=== PATIENT | female | born 1975 | race Caucasian/White ===

== ENCOUNTER 2018-03-04 08:17 | Emergency (ER) | payer SELFPAY ==
[2018-03-04 08:41] LABS: CHLORIDE,CL 105 mEq/L (98-106); SODIUM,NA 139 mEq/L (136-145)
[2018-03-04] MEDS: Sodium Chloride 0.9% 1,000 ML IV ONE (09:25)
--- NOTE | 2018-03-04 09:45 | EDM.PDOC ---
ED HPI GENERAL MEDICAL PROBLEM - General Chief Complaint: [employer] Problem Stated Complaint: vaginal bleeding Time Seen by Provider: 03/04/18 08:30 Source of Information: Reports: Patient History Limitations: Reports: No Limitations - History of Present Illness Onset Date: 02/18/18 Duration: Constant Location: Reports: Pelvis Severity: Moderate Improves with: Reports: None Worsens with: Reports: None Associated Symptoms: Reports: Other - Related Data Allergies Allergy/AdvReac Type Severity Reaction Status Date / Time No Known Allergies Allergy Verified 03/04/18 08:39 Home Meds: Home Meds Naproxen Sodium [Aleve] 440 mg PO Q6HR PRN 03/04/18 [History] Past Medical History HEENT History: Reports: None Genitourinary History: Reports: Renal Calculus Musculoskeletal History: Reports: None Psychiatric History: Reports: Anxiety, Depression Hematologic History: Reports: None Immunologic History: Reports: None Oncologic (Cancer) History: Reports: None Dermatologic History: Reports: None - Past Surgical History Head Surgeries/Procedures: Reports: None GI Surgical History: Reports: Cholecystectomy Oncologic Surgical History: Reports: None Social & Family History - Tobacco Use Smoking Status *Q: Never Smoker ED ROS GENERAL - Review of Systems Review Of Systems: See Below Constitutional: Reports: Chills. Denies: Fever, Malaise Respiratory: Denies: Shortness of Breath, Cough Cardiovascular: Denies: Chest Pain Endocrine: Reports: Fatigue GI/Abdominal: Reports: Nausea. Denies: Abdominal Pain, Bloody Stool, Vomiting : Reports: Other (vaginal bleeding. approx 4 pads per day. reports menses are regular and occur on approx the 4th of each month. this month she was several days late and has been bleeding for approx 10 days which is not normal for her.) . Denies: Dysuria, Flank Pain Musculoskeletal: Reports: No Symptoms Skin: Reports: No Symptoms ED EXAM, RENAL/ - Physical Exam Exam: See Below Exam Limited By: No Limitations General Appearance: Alert, WD/WN, No Apparent Distress Respiratory/Chest: No Respiratory Distress, Lungs Clear, Normal Breath Sounds, No Accessory Muscle Use, Chest Non-Tender Cardiovascular: Normal Peripheral Pulses, Regular Rate, Rhythm, No Edema GI/Abdominal: Normal Bowel Sounds, Soft, Non-Tender, No Organomegaly, No Distention, No Abnormal Bruit, No Mass (Female) Exam: Other (deferred) Back Exam: No: CVA Tenderness (L), CVA Tenderness (R) Extremities: Normal Inspection Neurological: Alert, Oriented, CN II-XII Intact Psychiatric: Normal Affect Skin Exam: Warm, Dry, Intact Course - Vital Signs Last Recorded V/S: Last Vital Signs Temp 36.4 C 03/04/18 08:17 Pulse 86 03/04/18 08:17 Resp 18 03/04/18 08:17 BP 145/82 H 03/04/18 08:17 Pulse Ox 100 03/04/18 08:17 - Orders/Labs/Meds Labs: Laboratory Tests 03/04/18 03/04/18 03/04/18 Range/Units 08:23 08:23 08:23 WBC 7.7 (5.0-10.0) 10^3/uL RBC 4.31 (4.00-5.50) 10^6/uL Hgb 12.5 (12.0-16.0) g/dL Hct 38.7 (37.0-47.0) % MCV 89.8 (82.0-94.0) fL MCH 29.0 (27.0-32.0) pg MCHC 32.3 L (33.0-38.0) g/dL RDW Coeff of Madi 14.6 (11.0-15.0) % Plt Count 283 (150-400) 10^3/uL Neut % (Auto) 80.5 (35-85) % Lymph % (Auto) 10.6 (10-55) % [place] % (Auto) 6.8 (0-16) % Eos % (Auto) 1.8 (0-5) % Baso % (Auto) 0.3 (0-3) % Neut # (Auto) 6.18 (1.80-7.00) 10^3/uL Lymph # (Auto) 0.81 L (1.00-4.80) 10^3/uL [place] # (Auto) 0.52 (0.00-0.80) 10^3/uL Eos # (Auto) 0.14 (0.00-0.45) 10^3/uL Baso # (Auto) 0.02 10^3/uL Sodium 139 (136-145) mEq/L Potassium 3.7 (3.5-5.0) mEq/L Chloride 105 (98-106) mEq/L Carbon Dioxide 27 (21-32) mmol/L BUN 10 (7-18) mg/dL Creatinine 0.6 (0.6-1.0) mg/dL Est Cr Clr Drug Dosing 116.35 mL/min Estimated GFR (MDRD) > 60 (>=60) mL/min Glucose 107 H (75-99) mg/dL Calcium 8.5 (8.4-10.1) mg/dL HCG, Qual Negative Meds: Medications Discontinued Medications Generic Name Dose Route Start Last Admin Trade Name Freq PRN Reason Stop Dose Admin Sodium Chloride 1,000 mls @ 999 mls/hr 03/04/18 08:23 03/04/18 09:25 Normal Saline IV 03/04/18 09:23 999 mls/hr .BOLUS ONE Administration Departure - Departure Time of Disposition: 09:38 Disposition: Home, Self-Care 01 Condition: Good Clinical Impression: Vaginal bleeding, Menopause - Discharge Information *PRESCRIPTION DRUG MONITORING PROGRAM REVIEWED*: Not Applicable *COPY OF PRESCRIPTION DRUG MONITORING REPORT IN PATIENT CHARAMINE: Not Applicable Instructions: Abnormal Uterine Bleeding, Health Maintenance for Postmenopausal Women Referrals: Alla Calles PA [Primary Care Provider] - - Assessment/Plan Assessment:: Early menopause, abnormal vaginal bleeding. Labs and exam grossly WNL. Patient reports discussing her menses with her mother who told the patient she began menopause at the same age and with the same symptoms. The VS are stable, there is no anemia, signs of infection, or trauma. Advised patient to rest, hydrate, OTC pain control PRN symptoms, fu with PCP in 3 days, go to closest ED if change or worse. Patient reports understanding and agreement with plan. DC home stable.
== END 2018-03-04 09:55 | disposition home or self-care (01) ==
LOC: CC.ED 08:17
DX: N92.4 Excessive bleeding in the premenopausal period (principal)
CPT/HCPCS: 36415; 80048; 84703; 85025; 96360; 99283; J7030

== ENCOUNTER 2020-11-23 08:05 | Emergency (ER) | payer BC ==
--- NOTE | 2020-11-23 08:45 | EDM.PDOC ---
ED HPI GENERAL MEDICAL PROBLEM - General Chief Complaint: Respiratory Problem Stated Complaint: SOB/CHEST COLD? Time Seen by Provider: 11/23/20 08:32 Source of Information: Reports: Patient History Limitations: Reports: No Limitations - History of Present Illness INITIAL COMMENTS - FREE TEXT/NARRATIVE: Natalee is a 45 yo female who presents to the ED today as she thought the clinic was closed. States she called in and recording states it is closed for a holiday. She has been getting a lot of phlegm and coughing more so at night or in the morning. States when she starts to cough she gets short of breath. Denies any body aches, fevers, N/V, loss of taste or smell. States she feels short of breath when she starts having a coughing spell. Admits in the morning she will cough up greenish phlegm but otherwise clear. - Related Data Allergies Allergy/AdvReac Type Severity Reaction Status Date / Time No Known Allergies Allergy Verified 11/23/20 08:16 Home Meds: Home Meds Naproxen Sodium [Aleve] 440 mg PO Q6HR PRN 03/04/18 [History] Past Medical History HEENT History: Reports: None Genitourinary History: Reports: Renal Calculus Musculoskeletal History: Reports: None Psychiatric History: Reports: Anxiety, Depression Hematologic History: Reports: None Immunologic History: Reports: None Oncologic (Cancer) History: Reports: None Dermatologic History: Reports: None - Past Surgical History Head Surgeries/Procedures: Reports: None GI Surgical History: Reports: Cholecystectomy Oncologic Surgical History: Reports: None Social & Family History - Tobacco Use Tobacco Use Status *Q: Never Tobacco User - Caffeine Use Caffeine Use: Reports: Coffee - Recreational Drug Use Recreational Drug Use: No ED ROS GENERAL - Review of Systems Review Of Systems: Comprehensive ROS is negative, except as noted in HPI. ED EXAM, GENERAL - Physical Exam Exam: See Below Exam Limited By: No Limitations General Appearance: Alert, No Apparent Distress Ears: Normal External Exam, Hearing Grossly Normal, Normal TMs Nose: Normal Inspection, Clear Rhinorrhea Throat/Mouth: Normal Inspection, Normal Teeth, Normal Oropharynx, Normal Voice, No Airway Compromise Head: Atraumatic, Normocephalic Neck: Normal Inspection, Supple Respiratory/Chest: No Respiratory Distress, Lungs Clear, Normal Breath Sounds, No Accessory Muscle Use. No: Crackles, Rales, Rhonchi Cardiovascular: Regular Rate, Rhythm, No Murmur Psychiatric: Normal Affect, Normal Mood Skin Exam: Warm, Dry, Intact Course - Vital Signs Last Recorded V/S: Last Vital Signs Temp 97.1 F 11/23/20 08:12 Pulse 94 11/23/20 08:12 Resp 16 11/23/20 08:12 BP 147/90 H 11/23/20 08:12 Pulse Ox 98 11/23/20 08:12 Departure - Departure Time of Disposition: 08:39 Disposition: Home, Self-Care 01 Clinical Impression: Bronchitis, acute Qualifiers: Bronchitis organism: unspecified organism Qualified Code(s): J20.9 - Acute bronchitis, unspecified - Discharge Information *PRESCRIPTION DRUG MONITORING PROGRAM REVIEWED*: No *COPY OF PRESCRIPTION DRUG MONITORING REPORT IN PATIENT CHARMAINE: No Instructions: Shortness of Breath, Adult, [id number], Acute Bronchitis, Adult Additional Instructions: 1) Prednisone 20mg - 2 tablets daily for 5 days 2) Mucinex D - 1 tablet twice a day 3) If any fevers, increased shortness of breath, worsening symptoms overall... advise returning for reevaluation. 4) [facility] [place] [facility]) Recommend having blood pressure check with primary in the next week or two. Sepsis Event Note (ED) - Evaluation Sepsis Screening Result: No Definite Risk - Focused Exam Vital Signs: Vital Signs Temp Pulse Resp BP Pulse Ox 11/23/20 08:12 97.1 F 94 16 147/90 H 98 - Problem List & Annotations (1) Bronchitis, acute SNOMED Code(s): 93688295 Code(s): J20.9 - ACUTE BRONCHITIS, UNSPECIFIED Status: Acute Qualifiers: Bronchitis organism: unspecified organism Qualified Code(s): J20.9 - Acute bronchitis, unspecified - Assessment/Plan Plan: see additional instructions. Natalee is overall doing well. Will give 5 days course of prednisone. Encouraged to use Mucinex D as well as directed. Follow up if symptoms worsen or any concerns.
== END 2020-11-23 08:50 | disposition home or self-care (01) ==
LOC: SUPCPDRO 08:05 → CC.ED 08:05
DX: J20.9 Acute bronchitis, unspecified (principal)
CPT/HCPCS: 99283

== ENCOUNTER 2024-07-27 18:26 | Emergency (ER) | payer BC | END 2024-07-27 19:50 | disposition home or self-care (01) | LOC: CC.ED 18:26 | DX: J10.1 Influenza due to other identified influenza virus with other respiratory manifestations (principal); Z88.8 Allergy status to other drugs, medicaments and biological substances; Z90.49 Acquired absence of other specified parts of digestive tract | CPT/HCPCS: 87428-QW; 99283; 99284 ==